=== PATIENT | female | born 1935 | race Caucasian/White ===

== ENCOUNTER 2020-01-31 15:55 | Emergency (ER) | payer MEDICARE ==
--- NOTE | 2020-01-31 16:12 | ED ---
General Adult HPI - General Chief complaint: Fall Stated complaint: Fall Time Seen by Provider: 01/31/20 15:58 Source: EMS Mode of arrival: EMS Limitations: no limitations - History of Present Illness Initial comments: Dictation was produced using Stat dictation software. please excuse any grammatical, word or spelling errors. This patient was cared for during a federal and state declared state of emergency secondary to Covid 19 Chief Complaint: 84-year-old female past medical history dyslipidemia hypertension rheumatoid arthritis and right frozen shoulder presents with right shoulder pain after fall. History of Present Illness: 84-year-old female she was in her lungs remained in her laundry. Patient states she tripped over one of her laundry basket speech she landed on her right side. Patient states initially she had some knee pain and shoulder pain. Denies any head trauma. She has no headache or neck pain. Denies any loss of consciousness. Patient does not take any blood thinners. EMS was called patient is brought to the emergency department she received 5 mg of morphine with slight improvement of her symptoms. She states that her knee pain is gone. Now she complains of right shoulder pain. Denies any numbness and paresthesias to the right upper extremity. The ROS documented in this emergency department record has been reviewed and confirmed by me. Those systems with pertinent positive or negative responses have been documented in the HPI. All other systems are other negative and/or noncontributory. PHYSICAL EXAM: General Impression: Alert and oriented x3, not in acute distress HEENT: Normocephalic atraumatic, extra-ocular movements intact, pupils equal and reactive to light bilaterally, mucous membranes moist, no cervical spine tenderness Cardiovascular: Heart regular rate and rhythm Chest: Able to complete full sentences, no retractions, no tachypnea Abdomen: abdomen soft, non-tender, non-distended, no organomegaly Musculoskeletal: Pulses present and equal in all extremities, no peripheral edema Right upper extremity: Tenderness to palpation over the humeral head. No pain over the humerus double forearm or wrist. Motor intact, neurovascularly intact Motor: no focal deficits noted Neurological: CN II-XII grossly intact, no focal motor or sensory deficits noted Skin: Intact with no visualized rashes Psych: Normal affect and mood ED course: 84-year-old female presents with right shoulder pain after fall. Vital signs upon arrival are within acceptable limits. Patient has no head trauma or neck pain. She does not take any thinners. No indication for computed tomography scan of the head or C-spine. History of present illness is clearly mechanical in nature.Right shoulder x-ray shows displaced comminuted humeral neck fracture. Patient placed in a coapt splint. She is given outpatient referral to orthopedic surgery. Patient given prescription for by mouth analgesia. Patient clear for discharge. - Related Data Previous Rx's Medication Instructions Recorded HYDROcodone/APAP 5-325MG [[place] 1 tab PO Q6HR PRN 3 Days #12 tab 01/31/20 5-325] Allergies Allergy/AdvReac Type Severity Reaction Status Date / Time Sulfa (Sulfonamide Allergy Unknown Verified 01/31/20 17:52 Antibiotics) Childhood Review of Systems ROS Statement: Those systems with pertinent positive or pertinent negative responses have been documented in the HPI. ROS Other: All systems not noted in ROS Statement are negative. Past Medical History Past Medical History: Hyperlipidemia, Hypertension, Rheumatoid Arthritis (RA), Thyroid Disorder History of Any Multi-Drug Resistant Organisms: None Reported Past Surgical History: Appendectomy, Cholecystectomy, Hysterectomy, Orthopedic Surgery Additional Past Surgical History / Comment(s): Bilateral knee replacement 2011- 2012 Past Psychological History: Anxiety Smoking Status: Never smoker Past Alcohol Use History: None Reported Past Drug Use History: None Reported General Exam Limitations: no limitations Course Vital Signs 01/31/20 17:20 Pulse Rate 80 Respiratory 14 Rate Blood Pressure 111/51 O2 Sat by Pulse 98 Oximetry Disposition Clinical Impression: Humeral fracture Disposition: HOME SELF-CARE Condition: Fair Instructions (If sedation given, give patient instructions): Fall Prevention for Older Adults (ED), Arm Fracture in Adults (ED) Prescriptions: HYDROcodone/APAP 5-325MG [[place] 5-325] 1 tab PO Q6HR PRN 3 Days #12 tab PRN Reason: Severe Pain Is patient prescribed a controlled substance at d/c from ED?: Yes If prescribed controlled substance>3 days was MAPS reviewed?: Prescribed <3 Days Referrals: Domingo Burciaga DO [Doctor of Osteopathic Medicine] - 1-2 days Time of Disposition: 17:53
--- NOTE | 2020-01-31 16:39 | XR ---
EXAMINATION TYPE: XR shoulder complete RT DATE OF EXAM: 01/31/2020 COMPARISON: NONE HISTORY: Pain TECHNIQUE: Three views are submitted. FINDINGS: Comminuted fracture involving the neck of the humerus. Arthropathy of the shoulder. 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 IMPRESSION: 1. Displaced comminuted fracture involving the neck of the humerus.
[2020-01-31 17:35] VITALS: BP 111/51; PULSE 80; RESP 14
--- NOTE | 2020-01-31 17:54 | ED ---
Disposition Clinical Impression: Humeral fracture Disposition: HOME SELF-CARE Condition: Fair Instructions (If sedation given, give patient instructions): Arm Fracture in Adults (ED), Fall Prevention for Older Adults (ED) Prescriptions: HYDROcodone/APAP 5-325MG [[place] 5-325] 1 tab PO Q6HR PRN 3 Days #12 tab PRN Reason: Severe Pain Is patient prescribed a controlled substance at d/c from ED?: Yes If prescribed controlled substance>3 days was MAPS reviewed?: Prescribed <3 Days Referrals: Domingo Burciaga DO [Doctor of Osteopathic Medicine] - 1-2 days Time of Disposition: 17:54 Procedures - Orthopedic Splinting/Casting Injury #1 Side: right Upper Extremity Injury Location: long arm (coapt splint) Upper Extremity Immobilizer: sling/shoulder immobilizer
== END 2020-01-31 18:04 | disposition home or self-care (01) ==
LOC: EC 15:55
DX: S42.211A Unspecified displaced fracture of surgical neck of right humerus, initial encounter for closed fracture (principal); Z88.2 Allergy status to sulfonamides; Z96.653 Presence of artificial knee joint, bilateral; W01.0XXA Fall on same level from slipping, tripping and stumbling without subsequent striking against object, initial encounter; Y93.E2 Activity, laundry; Y92.009 Unspecified place in unspecified non-institutional (private) residence as the place of occurrence of the external cause
CPT/HCPCS: 99283